=== PATIENT | male | born 1990 | race African-American/Black ===

== ENCOUNTER 2016-12-23 09:04 | Emergency (ER) | payer SELFPAY ==
[~2016-12-23] VITALS: Ht 190.5 cm; Wt 98.0 kg
[~2016-12-23 09:04] MED LIST: PENI250T59 PO
[2016-12-23 09:06] VITALS: BP 130/76; PULSE 64; RESP 20; TEMP 98.7; O2SAT 98
[2016-12-23] MEDS ORDERED: SODIUM CHLORIDE 0.9% FLUSH 10 ML FLUSH IVF PRN (09:30)
--- NOTE | 2016-12-23 09:30 | PD ---
HPI Chief Complaint: Chest Pain Time Seen by Provider: 09:27 Travel History International Travel<30 days: No Contact w/Intl Traveler<30days: No Traveled to known affect area: No History of Present Illness HPI 26-year-old male with history of irregular heartbeat at the age of 13 status post ablation, presents to the ER today because he states that he has had a 1 month history of intermittent chest discomfort, mild shortness of breath. He does not know any relation to exercise or any other factors. He is not currently having any chest discomfort or shortness of breath in the ER. He states however, the episodes have been occurring more often in the past week. He denies any coughing, fevers, or any other symptoms. Modifying Factors: None Associated Signs & Symptoms: One month of intermittent chest discomfort and shortness of breath Risk Factors: Previous history of irregular heartbeats and ablation PFSH Past Medical History Heart Rhythm Problems: Yes (SVT) Cardiovascular Problems: Yes (heart sx) Immunizations Current: Yes Tetanus Vaccination: Unknown Past Surgical History Surgical History: No Previous Surgery Cardiac Surgery: Yes (ATRIAL ABLATION 2004) Social History Alcohol Use: Yes (RARE) Tobacco Use: No Substance Use: No Allergies-Medications (Allergen,Severity, Reaction): Coded Allergies: No Known Allergies (Unverified , 12/23/16) Reported Meds & Prescriptions Reported Meds & Active Scripts Active Penicillin Vk (Penicillin V Potassium) 250 Mg Tab 500 Mg PO Q8H 10 Days Review of Systems Except as stated in HPI: all other systems reviewed are Neg Physical Exam Narrative GENERAL: Well-developed young -[place] male patient currently not in acute distress. Awake and oriented 3. SKIN: Focused skin assessment warm/dry. HEAD: Atraumatic. Normocephalic. EYES: Pupils equal and round. No scleral icterus. No injection or drainage. ENT: No nasal bleeding or discharge. Mucous membranes pink and moist. NECK: Trachea midline. No JVD. CARDIOVASCULAR: Regular rate and rhythm. No murmur appreciated. Pulses are present and equal bilaterally. RESPIRATORY: No accessory muscle use. Clear to auscultation. Breath sounds equal bilaterally. GASTROINTESTINAL: Abdomen soft, non-tender, nondistended. Hepatic and splenic margins not palpable. MUSCULOSKELETAL: No obvious deformities. No clubbing. No cyanosis. No edema. NEUROLOGICAL: Awake and alert. No obvious cranial nerve deficits. Motor grossly within normal limits. Normal speech. PSYCHIATRIC: Appropriate mood and affect; insight and judgment normal. Data Data Last Documented VS Vital Signs Date Time Temp Pulse Resp B/P Pulse Ox O2 Delivery O2 Flow Rate FiO2 12/23/16 10:22 97 Room Air 12/23/16:17 64 12/23/16 09:06 98.7 20 130/76 Orders Electrocardiogram (12/23/16:) B-Type Natriuretic Peptide (12/23/16:) Ckmb (Isoenzyme) Profile (12/23/16:) Complete Blood Count With Diff (12/23/16) Comprehensive Metabolic Panel (12/23/16) D-Dimer (12/23/16) Magnesium (Mg) (12/23/16) Prothrombin Time / Inr (Pt) (12/23/16) Act Partial Throm Time (Ptt) (12/23/16) Troponin I (12/23/16:) Chest, Single Ap (12/23/16) Ecg Monitoring (12/23/16) Bilateral Bp Monitoring (12/23/16) Iv Access Insert/Monitor (12/23/16) Oximetry (12/23/16) Oxygen Administration (12/23/16) Sodium Chloride 0.9% Flush (Ns Flush) (12/23/16 09:30) CKMB (12/23/16 10:06) CKMB% (12/23/16 10:06) Labs Laboratory Tests Test 12/23/16 12/23/16 09:20 10:06 White Blood Count 7.0 TH/MM3 Red Blood Count 4.97 MIL/MM3 Hemoglobin 14.4 GM/DL Hematocrit 43.0 % Mean Corpuscular Volume 86.6 FL Mean Corpuscular Hemoglobin 28.9 PG Mean Corpuscular Hemoglobin 33.4 % Concent Red Cell Distribution Width 13.3 % Platelet Count 206 TH/MM3 Mean Platelet Volume 8.9 FL Neutrophils (%) (Auto) 52.6 % Lymphocytes (%) (Auto) 33.8 % Monocytes (%) (Auto) 8.0 % Eosinophils (%) (Auto) 4.7 % Basophils (%) (Auto) 0.9 % Neutrophils # (Auto) 3.7 TH/MM3 Lymphocytes # (Auto) 2.4 TH/MM3 Monocytes # (Auto) 0.6 TH/MM3 Eosinophils # (Auto) 0.3 TH/MM3 Basophils # (Auto) 0.1 TH/MM3 CBC Comment DIFF FINAL Differential Comment B-Type Natriuretic Peptide 4 PG/ML Prothrombin Time 11.0 SEC Prothromb Time International 1.0 RATIO Ratio Activated Partial 29.4 SEC Thromboplast Time D-Dimer Quantitative (PE/DVT) LESS THAN 0.19 MG/L FEU Sodium Level 138 MEQ/L Potassium Level 3.9 MEQ/L Chloride Level 104 MEQ/L Carbon Dioxide Level 27.7 MEQ/L Anion Gap 6 MEQ/L Blood Urea Nitrogen 11 MG/DL Creatinine 1.10 MG/DL Estimat Glomerular Filtration 97 ML/MIN Rate Random Glucose 72 MG/DL Calcium Level 8.5 MG/DL Magnesium Level 2.0 MG/DL Total Bilirubin 0.4 MG/DL Aspartate Amino Transf 17 U/L (AST/SGOT) Alanine Aminotransferase 28 U/L (ALT/SGPT) Alkaline Phosphatase 69 U/L Total Creatine Kinase 248 U/L Creatine Kinase MB 1.1 NG/ML Troponin I LESS THAN 0.02 NG/ML Total Protein 7.2 GM/DL Albumin 3.8 GM/DL MDM Medical Decision Making Medical Screen Exam Complete: Yes Emergency Medical Condition: Yes Medical Record Reviewed: Yes Interpretation(s) EKG shows NSR, no ST elevation or depression, and no arrhythmias. No significant T-wave inversions. No signs of QT prolongation or delta waves. Laboratory Tests Test 12/23/16 12/23/16 09:20 10:06 Eosinophils (%) (Auto) 4.7 % (0.0-4.0) Random Glucose 72 MG/DL (74-106) Troponin I LESS THAN 0.02 NG/ML (0.02-0.05) Last 24 hours Impressions Chest X-Ray 12/23/1632 Signed Impressions: Service Date/Time: Friday, December 23, 2016 09:23 - CONCLUSION: 1. Mild cardiomegaly. No overt congestive failure. Rui Brooks MD Differential Diagnosis Chest discomfort and shortness of breathanxiety attacks versus dysrhythmias versus ACS versus electrolyte abnormalities Narrative Course EKG did not show any signs of ST changes or dysrhythmias. Vital signs are stable in the ER. Lab work was otherwise unremarkable with no signs of d-dimer elevations. Patient is a fairly healthy young man and does not have a problem going upstairs, all running around the track, and I think that the likelihood of ACS in the young healthy and fairly active man with no other risk factors except for previous ablation should be fairly low. At this point, symptoms has already been going on for at least a month. My plan would be at this point to have her follow-up as an outpatient with cardiology for further workup. Patient is completely asymptomatic currently. He should return for any worsening in symptoms however. The plan was discussed with him and he states understanding. Diagnosis Primary Impression: Atypical chest pain Disposition: 01 DISCHARGE HOME Condition: Stable Alize Cr MD Dec 23, 2016 09:30
[2016-12-23 09:43] LABS: AUTOMATED NEUTROPHIL # 3.7 TH/MM3 (1.8-7.7); BASOPHIL # 0.1 TH/MM3 (0-0.2); BASOPHIL % 0.9 % (0.0-2.0); EOSINOPHIL # 0.3 TH/MM3 (0-0.4); EOSINOPHIL % 4.7 % (0.0-4.0); HEMO FLAGS DIFF FINAL; LYMPH % 33.8 % (9.0-44.0); LYMPHOCYTE # 2.4 TH/MM3 (1.0-4.8); MEAN CELL VOLUME 86.6 FL (80.0-100.0); MEAN CORPUSCULAR HEMOGLOBIN 28.9 PG (27.0-34.0); MEAN CORPUSCULAR HGB CONC 33.4 % (32.0-36.0); NEUT % 52.6 % (16.0-70.0); PLATELET COUNT 206 TH/MM3 (150-450); RED BLOOD COUNT 4.97 MIL/MM3 (4.50-5.90); RED CELL DISTRIBUTION WIDTH 13.3 % (11.6-17.2)
[2016-12-23 09:58] LABS: ALT (GPT) 28 U/L (12-78)
--- NOTE | 2016-12-23 10:02 | RADRPT ---
EXAM DATE/TIME: 12/23/2016 09:23 [facility] COMPARISON: KNEE LEFT COMPLETE (4VWS), August 09, 2014, 8:58. INDICATIONS : Chest pain. MEDICAL HISTORY : Cardiovascular disease. SURGICAL HISTORY : Ablation. ENCOUNTER: Initial ACUITY: 1 day PAIN SCORE: 5/10 LOCATION: Left chest FINDINGS: The heart appears mildly enlarged. Mediastinal contours are within normal limits. The lungs are clear . The bony structures are intact. CONCLUSION: 1. Mild cardiomegaly. No overt congestive failure. Rui Brooks MD on December 23, 2016 at 9:59 Board Certified Radiologist. This report was verified electronically.
[2016-12-23 10:22] VITALS: O2SAT 97
[2016-12-23 10:39] LABS: APTT (PATIENT) 29.4 SEC (24.3-30.1)
[2016-12-23 10:45] LABS: ANION GAP 6 MEQ/L (5-15); AST (GOT) 17 U/L (15-37); BICARBONATE 27.7 MEQ/L (21.0-32.0); CHLORIDE 104 MEQ/L (98-107); GLOMERULAR FILTRATION RATE 97 ML/MIN (>89); SODIUM (NA) 138 MEQ/L (136-145)
[2016-12-23 10:46] LABS: ALKALINE PHOSPHATASE 69 U/L (45-117); CREATINE KINASE 248 U/L (39-308); TOTAL BILIRUBIN ADULT 0.4 MG/DL (0.2-1.0)
[2016-12-23 10:49] LABS: BLOOD UREA NITROGEN 11 MG/DL (7-18); POTASSIUM 3.9 MEQ/L (3.5-5.1)
[2016-12-23 11:02] LABS: CKMB 1.1 NG/ML (0.5-3.6)
--- NOTE | 2016-12-23 14:08 | EKG ---
Date Performed: 12/23/2016 Time Performed: 09:20:11 PTAGE: 26 years EKG: Sinus rhythm WITH SINUS ARRHYTHMIA NORMAL ECG Compared to PREVIOUS TRACING , ST-T changes have improved. PREVIOUS TRACING 11/10/2011 13.35.42 DOCTOR: Sam Delacruz Interpretating Date/Time 12/23/2016 14:07:10
== END 2016-12-23 12:40 | disposition home or self-care (01) ==
LOC: NEPC 09:04
DX: R07.89 Other chest pain (principal); I47.1 Supraventricular tachycardia; R06.02 Shortness of breath; I49.8 Other specified cardiac arrhythmias
CPT/HCPCS: 71010; 80053; 82550; 82552; 83735; 83880; 84484; 85025; 85379; 85610; 85730; 93005